=== PATIENT | male | born 1950 | race Caucasian/White ===

== ENCOUNTER 2017-07-01 12:07 | Outpatient (CLI) | payer MEDICARE ==
--- NOTE | 2017-07-01 17:54 | XRAY Report ---
TWO VIEW CHEST: 07/01/2017 CLINICAL INDICATION: Cough. Frontal and lateral views of the chest demonstrate a normal cardiac silhouette. The lungs are hyperi nflated, compatible with COPD. No focal consolidation, effusion, or pneumothorax is present. IMPRESSION: COPD, BUT NO EVIDENCE OF ACUTE CARDIOPULMONARY DISEASE. JOB #: [id number] EXT JOB #:[id number]
== END 2017-07-01 12:08 | disposition home or self-care (01) ==
LOC: DI.S 12:07
PROVIDERS: ATTEND Nurse Practitioner Family
DX: J44.9 Chronic obstructive pulmonary disease, unspecified (principal)
CPT/HCPCS: 71020

== ENCOUNTER 2017-08-11 09:04 | Outpatient (CLI) | payer MEDICARE | END 2017-08-11 09:05 | disposition home or self-care (01) | LOC: RT 09:04 | PROVIDERS: ATTEND Registered Nurse | DX: R05 Cough (principal); R06.2 Wheezing | CPT/HCPCS: 94010 ==

== ENCOUNTER 2017-09-21 08:28 | Outpatient (CLI) | payer MEDICARE ==
--- NOTE | 2017-09-21 09:30 | CT Report ---
CT OF CHEST WITHOUT CONTRAST: 09/21/2017 CLINICAL INDICATION: Cough, weight loss. TECHNIQUE: Axial CT images of the chest were obtained without intravenous contrast. No previous CT is available for comparison. FINDINGS: The heart and great vessels demonstrate minimal atherosclerotic calcification. No hilar or mediastinal lymphadenopathy is present. The lungs demonstrate minimal atelectasis. No pulmonary nodule or mass lesion is seen. No focal infiltrate is present. No effusion or pneumothorax. Limited evaluation of upper abdominal structures demonstrates normal adrenal glands. Osseous structures demonstrate degenerative changes. IMPRESSION: NO EVIDENT ETIOLOGY FOR PATIENT'S COUGH AND WEIGHT LOSS. In accordance with CT protocol optimization, one or more of the following dose reduction techniques were utilized for this exam: automated exposure control, adjustment of mA and/or KV based on patient size, or use of iterative reconstructive technique. TD: 09/21/2017 09:30
== END 2017-09-21 08:29 | disposition home or self-care (01) ==
LOC: DI 08:28
PROVIDERS: ATTEND Registered Nurse
DX: R05 Cough (principal); R63.4 Abnormal weight loss
CPT/HCPCS: 71250

== ENCOUNTER 2019-09-15 08:21 | Outpatient (CLI) | payer MEDICARE ==
--- NOTE | 2019-09-15 15:48 | MRI Report ---
Reason: GOUT Procedure Date: 09/15/2019 Accession Number: [id number] / [id number] Procedure: MRI - Foot RT W/O CPT Code: Final Report FULL RESULT: EXAM: RIGHT MIDFOOT MRI WITHOUT CONTRAST. EXAM DATE: 09/15/2019 09:26 AM. CLINICAL HISTORY: Gout. COMPARISON: None. TECHNIQUE: Multiplanar, multisequence T1-weighted and fluid-sensitive sequences of the midfoot without contrast. Other: None. FINDINGS: Bones and articular surfaces: Moderate cartilage thinning at the 1st MTP joint with patchy subchondral edema and small marginal osteophytes. Possible small tophus at the distal medial margin of the 1st metatarsal with small underlying erosion. Remaining MTP joints are unremarkable. Patchy subchondral edema partially visualized at the 1st interphalangeal joint. No fracture. Musculotendinous structures: Visualized flexor and extensor tendons appear intact. No significant muscle atrophy or fatty replacement. Miscellaneous: Subcutaneous soft tissue edema over the dorsum of the forefoot. Plantar subcutaneous nodule demonstrating intermediate T1 and high T2 signal measuring 1.2 x 1.0 x 1.1 cm. This abuts the skin surface and is located superficial to the distal plantar fascia and flexor digitorum tendons near the level of the mid third intermetatarsal space. No additional discrete subcutaneous nodule identified. IMPRESSION: 1. Well-circumscribed subcutaneous intermediate T1 high T2 signal nodule 1.2 x 1.0 x 1.1 cm. Cystic versus solid. Considerations include epidermoid inclusion cyst, ganglion cyst, metastatic or other neoplasm. Could be further characterized with contrast-enhanced MRI. 2. 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 Possibility of a small tophus and erosion at the distal medial aspect of the 1st metatarsal. RADIA
== END 2019-09-15 08:22 | disposition home or self-care (01) ==
LOC: DI 08:21
PROVIDERS: ATTEND Nurse Practitioner Family
DX: M19.071 Primary osteoarthritis, right ankle and foot (principal); R22.41 Localized swelling, mass and lump, right lower limb; M10.9 Gout, unspecified

== ENCOUNTER 2020-01-12 11:30 | Outpatient (CLI) | payer MEDICARE | END 2020-01-12 11:31 | disposition home or self-care (01) | LOC: LAB 11:30 | PROVIDERS: ATTEND Registered Nurse | DX: I10 Essential (primary) hypertension (principal) | CPT/HCPCS: 36415; 81599; 82088; 84244 ==

== ENCOUNTER 2023-05-15 13:18 | Outpatient (CLI) | payer MEDICARE ==
--- NOTE | 2023-05-15 14:08 | SLEEP CARE CONSULTATION ---
Information from patient questionnaire entered by Venecia Daniels. I have reviewed and concur with the information entered by Venecia Daniels. This document represents the service I personally performed and the decisions made by me, Neisha Ralph ARNP. History of Present Illness Service Date and Time: 05/15/2023 1318 Reason for Visit: New patient Chief Complaint: reports: Observed pauses in breathing, Frequent awakenings at night Date of Onset: 10-12YRS Usual bedtime: 10PM Time it takes to fall asleep: 1-2HRS, will take melatonin at 2 hrs to help go to sleep Snores at night: Yes Observed to quit breathing while asleep: No Number of times waking at night: 2-3 Reasons for waking at night: reports: Bathroom, Other (UNKNOWN). denies: Choking, Gasping for air Toss, Turn, or Twitch while sleeping: Yes Recalls having dreams: No Usually gets out of bed at: 830-9AM Feels refreshed in the morning: No Morning headache: No Sleepy or fatigued during the day: No Ever fallen asleep while driving: Yes (drowsy driving; no accidents) Takes day naps: No Dreams during day naps: No Prior sleep studies: No Additional HPI information: I had the pleasure of seeing JANEL VENCES today regarding the possibility of him having a sleep disorder. His current complaints are observed pauses in breathing and frequent night awakenings. He has a history of snoring for a long time. His says he stops breathing at night. His son was diagnosed with sleep apnea and is on a PAP machine. He states as a child he had a tonsillectomy and adenoids removed for snoring and illness. He does not wake up feeling rested. He will toss and turn for many hours at night. If he has not fallen asleep in 1-2 hours he will get up and take a Melatonin to get to sleep. He will then wake up several times a night and not be able to return to sleep. He has regularly spent 9 hours of time in bed and only gets 6 hours of sleep. - Parasomnia Symptoms Ever been unable to move upon waking from sleep: No Walks in sleep: No Talks in sleep: No Ever acted out dreams in sleep: No Ever felt weak in the knees when startled or emotional: Yes Bothered by creepy, crawly, restless sensations in legs: No Problems with memory or concentration: No Subjective Initial [place] Sleepiness Scale score: 11 (05/15/23) Past Medical History Past Medical History: reports: Hypertension, Arrythmia (minor heart murmur) Social History The patient's occupation is a RETIRED. Patient is and lives in [place]. Have you smoked in the past 12 months: No Alcohol use: No Caffeine use: No Family History Family history of sleep disordered breathing: Yes Family Hx Sleep Apnea: Other: Snoring (SON), Sleep apnea - Treated (SON) Allergies and Home Medications Known drug allergies: Yes (PCN BEE STING) Drug allergies reviewed: Yes Home medication list reviewed: Yes Allergy and home medication list: Allergies Penicillins Allergy (Verified 05/15/23 13:16) BEE STING Allergy (Uncoded 05/15/23 13:16) Home Medications Losartan [Cozaar] See Rx Instructions .ROUTE .COMPLEX 05/15/23 [History] Tamsulosin [Flomax] See Rx Instructions .ROUTE .COMPLEX 05/15/23 [History] Review of Systems Weight loss over past 5 years: 15 Cardiovascular: reports: high blood pressure Respiratory: reports: sputum production Gastrointestinal: denies: heartburn Urinary: reports: incontinence, frequency Neurological: reports: gait or balance problems. denies: headaches Psychiatric: denies: anxiety, depression Ear/Nose/Throat: reports: nasal congestion, tonsillectomy. denies: wisdom teeth removed Endocrine: reports: increased urination, unexplained weakness Musculoskeletal: reports: back pain, muscle pain or cramping Immunologic: reports: sneezing, allergies to food or environment (bee sting) Physical Exam Vital signs obtained and entered by: VENECIA Shaw MA Blood Pressure: 138/80 (LEFT ARM) Cuff size: regular Heart Rate: 92 O2 Saturation: 98 Height: 6 ft 1.5 in Weight: 223 lb 3.2 oz Body Mass Index: 29.0 BMI Classification: Overweight Neck circumference: 17 Mouth and throat: narrow oropharynx Soft palate: long Hard palate: normal Uvula: normal Uvula visualization: 0% Mallampati Class IV Tongue: enlarged in size with teeth prather on lateral edges Tonsils: absent bilaterally Neck: normal w/o lymphadenopathy or thyromegaly Heart: regular rate and rhythm Lungs: clear bilaterally Impression and Plan 1. Suspected Obstructive Sleep Apnea-Hypopnea Syndrome, as suggested by a history of loud and irregular snoring, observed cessation of breath while asleep, frequent awakening during the night and unrefreshed sleep. Narrow oropharynx and obesity are common predisposing factors for obstructive sleep apnea-hypopnea syndrome. I recommend proceeding to polysomnography to confirm the diagnosis and to assess severity. If the patient has significant sleep d isordered breathing, a manual CPAP titration study will also be performed to find the optimal treatment pressure. I informed the patient of what the sleep studies involve and after some discussion, obtained agreement to proceed. The pathophysiology of obstructive sleep apnea-hypopnea syndrome was discussed with the patient and health risks of cardiovascular and cerebrovascular disease if not treated. Risks of drowsy driving discussed in detail and patient advised to avoid long distance driving and to stock puller at the first sign of drowsiness. Patient agreed to plan. * Schedule polysomnography * Avoid long distance driving or driving when feeling sleepy. * Avoid alcohol, sedative and muscle relaxant around bedtime. * Attempt to lose weight. * Review instructions provided by trained office staff on how to prepare for the sleep study. * Return for follow-up after sleep study completed. Counseling Topics: Weight loss health impact Plan: PSG Visit Type: In Office Time Spent with Patient (minutes): 30 Provider Statement: I spent 100% of the Face to Face Visit with the patient with greater than 50% spent counseling the patient and coordination of care.
--- NOTE | 2023-05-15 14:09 | Sleep Patient Instructions ---
Sleep Center Visit Summary - Patient Visit Information Reason for Visit: Initial consult for evaluation of sleep disordered breathing and other sleep issues. - Patient Instructions Instructions Attached: Sleep Clinic Visit, Sleep Study Additional Instructions: You will be completing a sleep study, either an in-lab polysomnography (PSG) or home sleep study (HST). You will follow-up in the sleep care office after the sleep study is completed to hear the results and talk about therapy, if needed. You will be called by our office staff to schedule this appointment, but you may contact us with any questions. - Clinic Information Contact: [facility] [address] [place] [address] [email or web address] T: [phone]
[2023-05-15 15:03] VITALS: BP 138/80; O2SAT 98
== END 2023-05-15 13:19 | disposition home or self-care (01) ==
LOC: SC 13:18
PROVIDERS: ATTEND Nurse Practitioner Family
DX: G47.8 Other sleep disorders (principal); R06.83 Snoring; R06.81 Apnea, not elsewhere classified; I10 Essential (primary) hypertension; E66.3 Overweight; Z68.29 Body mass index [BMI] 29.0-29.9, adult
CPT/HCPCS: 99203; G0463; 99212

== ENCOUNTER 2023-06-04 19:16 | Outpatient (CLI) | payer MEDICARE | END 2023-06-04 19:17 | disposition home or self-care (01) | LOC: SC 19:16 | PROVIDERS: ATTEND Nurse Practitioner Family | DX: G47.31 Primary central sleep apnea (principal); G47.33 Obstructive sleep apnea (adult) (pediatric); G47.61 Periodic limb movement disorder; E66.3 Overweight; Z68.29 Body mass index [BMI] 29.0-29.9, adult | CPT/HCPCS: 95810 ==

== ENCOUNTER 2023-06-24 11:13 | Outpatient (CLI) | payer MEDICARE ==
--- NOTE | 2023-06-24 11:58 | Sleep Patient Instructions ---
Sleep Center Visit Summary - Patient Visit Information Reason for Visit: Sleep study followup - Patient Instructions Instructions Attached: CPAP, CPAP Dc Additional Instructions: You are being started on CPAP therapy with pressure setting at 4-15 cmH2O. You will need to call the sleep care office to set up your follow up once you have your APAP machine and we will schedule a visit to check compliance and response to therapy at that time. You may call the office with any concerns about pressure feeling too low or too much for adjustment, if needed. You should contact DME supplier for any questions or concerns about mask or equipment. Please call office to schedule a follow up appointment in the sleep care office one month after obtaining new device. - Clinic Information Contact: [facility] [address] [place] [address] [email or web address] T: [phone]
--- NOTE | 2023-06-24 12:01 | SLEEP CARE CONSULTATION ---
Information from patient questionnaire entered by Venecia Daniels. I have reviewed and concur with the information entered by Venecia Daniels. This document represents the service I personally performed and the decisions made by me, Neisha Ralph ARNP. History of Present Illness Service Date and Time: 06/24/2023 1113 Initial [place] Sleepiness Scale score: 11 (05/15/23) Current [place] Sleepiness Scale score: 15 (06/24/23) Additional HPI information: JANEL VENCES returns for follow up and results of the recently performed polysomnography. The sleep study showed severe obstructive sleep apnea with an average AHI of 48.5 and nadiya oxygen saturation of 79%. He also had moderate PLMs that did not contribute to sleep fragmentation. I explained the pathophysiology behind obstructive sleep apnea. We then spent quite a bit of time discussing different treatment options. For mild obstructive sleep apnea, surgery and oral appliance are alternatives to nasal CPAP therapy but in moderate or severe cases, nasal CPAP is the most effective and reliable treatment. I reviewed the impact of weight changes on sleep apnea and strongly recommended losing weight. After some discussion, the patient opted to go with the nasal CPAP therapy. Nasal autoCPAP set at 4-15 cmH20 will be ordered with rationale explained. A manual titration study will be ordered if unable to find optimal pressure with office adjustments. I explained how CPAP machine works and what to expect when using the machine. Using CPAP every night in order to get used to it was emphasized. Patient advised to put CPAP mask on before getting into bed so as not to fall asleep without CPAP. To assist acclimation to CPAP use, it could also be used for a short time during day while reading or watching TV. The patient was instructed to call the CPAP supplier to discuss any mechanical problem that may occur. If the mask given is uncomfortable or is difficult to keep on through the night even with adjustment, contact the CPAP supplier as many will replace with another mask style if notified before 30 days. If snoring or perceives is not getting enough air or too much air from the machine, notify this office. Patient does not drink alcohol. Patient was cautioned about risks of drowsy driving until sleepiness symptoms resolve. Patient denies drowsy driving. Sleep Study - Results Type of Sleep Study: Polysomnography (COMPLETED 06/04/23) Prior sleep studies: No Polysomnography/Home Sleep Study results: IMPRESSION: The quality of the study is good. The patient had poor sleep efficiency due to two prolonged awakenings during the night. The sleep architecture was abnormal for lack of slow wave sleep (N3).. Respiratory monitoring showed severe obstructive sleep apnea-hypopnea (AHI = 48.5) associated with frequent, oxyhemoglobin desaturation and moderate hypoxia (nadiya oxygen saturation of 79%). Baseline oxygen saturation was normal. The respiratory events occurred predominantly during supine sleep(supine AHI = 64.4; non-supine = 19.62). Snore was light to moderate in intensity. There was moderate periodic leg movement of sleep not associated with sleep fragmentation. Cardiac rhythm was normal sinus rhythm without significant arrhythmia. No abnormal behavior (parasomnia) observed during the night. Allergies and Home Medications Known drug allergies: Yes (as listed) Drug allergies reviewed: Yes Home medication list reviewed: Yes (no changes) Allergy and home medication list: Allergies Penicillins Allergy (Verified 06/23/23 14:18) BEE STING Allergy (Uncoded 06/23/23 14:18) Review of Systems Review of systems same as previous: Yes (NO CHANGE) Physical Exam Vital signs obtained and entered by: VENECIA Shaw MA Blood Pressure: 126/74 (LEFT ARM) Cuff size: regular Heart Rate: 80 O2 Saturation: 98 Height: 6 ft 1.5 in Weight: 224 lb 9.6 oz Body Mass Index: 29.2 BMI Classification: Overweight Impression and Plan 1. Obstructive Sleep Apnea-Hypopnea Syndrome, severe, with lowest oxygen saturation of 79%. Obviously this is the cause of the patients symptoms of unrefreshed sleep, and excessive daytime sleepiness. Positive pressure therapy could benefit hypertension. As mentioned above, the patient will be started on nasal autoCPAP therapy with pressure set at 4-15 cmH2O. A manual titration study will be completed if unable to find optimal treatment pressure with office adjustments. Compliance guidelines also reviewed. A copy of compliance guidelines will be given for reference at check out. Because the apnea is more severe supine, I instructed to avoid sleeping supine using pillow positioning until able to start CPAP use. 2. Hypoxemia, moderate, with a nadiya oxygen saturation of 79% and 77.2 minutes spent under 90%. The baseline oxygen saturation was normal with an average oxygen saturation of 91%. 3. Periodic limb movement, moderate, that did not fragment patients sleep. Periodic limb movement of sleep (PLMS) is characterized by episodes of repetitive limb movements that occur during sleep and usually involve the lower limbs. The etiology is unknown. Sleep hygiene methods can also improve sleep as well as lifestyle changes such as regular exercise. Patient was advised that no treatment is needed at this time. If symptoms increase, then further evaluation is indicated. * Nasal auto CPAP therapy, pressure at 4-15 cm H2O. * Attempt to lose weight. * Avoid alcohol consumption near bedtime. * Avoid supine sleep until using CPAP. * The patient is again cautioned about driving until sleepiness completely resolves. * Return one month after CPAP obtained. I will assess response to therapy and compliance at that time. Counseling Topics: Weight loss health impact Prescriptions: Auto CPAP Plan: F/U for compliance Visit Type: In Office Time Spent with Patient (minutes): 20 Provider Statement: I spent 100% of the Face to Face Visit with the patient with greater than 50% spent counseling the patient and coordination of care.
[2023-06-24 12:09] VITALS: BP 126/74; O2SAT 98
== END 2023-06-24 11:14 | disposition home or self-care (01) ==
LOC: SC 11:13
PROVIDERS: ATTEND Nurse Practitioner Family
DX: G47.33 Obstructive sleep apnea (adult) (pediatric) (principal); R09.02 Hypoxemia; G47.61 Periodic limb movement disorder; E66.3 Overweight; Z68.29 Body mass index [BMI] 29.0-29.9, adult
CPT/HCPCS: 99213; G0463; 99212

== ENCOUNTER 2023-12-16 14:37 | Outpatient (CLI) | payer MEDICARE ==
--- NOTE | 2023-12-16 15:01 | Sleep Patient Instructions ---
Sleep Center Visit Summary - Patient Visit Information Reason for Visit: 4-month follow-up - Patient Instructions Additional Instructions: You were here for follow up of CPAP therapy. You will be continued on CPAP therapy with pressure at 10-14 cmH2O. You will be completing a titration sleep study in our sleep lab where you will be sleeping with the CPAP machine on and we will be adjusting your pressures to find your optimal pressure settings. Once we have your results back, we will call you and schedule a follow up to go over the results, you may contact us with any questions or issues as needed. - Clinic Information Contact: [facility] [address] [place] [address] [email or web address] T: [phone]
--- NOTE | 2023-12-16 15:04 | SLEEP CARE CONSULTATION ---
Information from patient questionnaire entered by Venecia Daniels. I have reviewed and concur with the information entered by Venecia Daniels. This document represents the service I personally performed and the decisions made by me, Neisha Ralph ARNP. History of Present Illness Service Date and Time: 12/16/2023 1437 Previous diagnosis: Severe, Obstructive Sleep Apnea-Hypopnea Syndrome AHI: 48.5 (06/2023) Reason for follow up: other (4 MONTH F/U) Equipment type: CPAP (ResMed Airsense 10, s/u 07/2023, NEED MACHINE) Equipment obtained from: [employer] (getting supplies online because he is not eligible until January for further supplies) Mask style: Full face Mask brand: Resmed (AirFit F20, large cushion) Backup mask available: Yes Last cushion change: October Prior sleep studies: No Type of Sleep Study: Polysomnography (COMPLETED 06/04/23) HPI additional information: JANEL VENCES was diagnosed to have severe, AHI 48.5, obstructive sleep apnea-hypopnea syndrome and returned today for CPAP therapy four month follow- up. Sleep Study - Results Type of Sleep Study: Polysomnography (COMPLETED 06/04/23) Prior sleep studies: No CPAP Compliance Data - Data Reviewed with Patient Average duration of nightly device use: 6 hours 30 minutes Compliance rate %: 77 (119/120 days used) Current pressure setting (cmH2O): 10-14 Average residual AHI: 6.5 Central apnea: 3.6 Obstructive apnea: 2 Hypopnea: 0.5 Average large leak: 3.6 L/min Subjective Patient concerns: reports: mask leak noise (mask flutters and wakes him up), dry mouth, nose, throat (dry mouth occasionally). denies: aerophagia, mask discomfort, air blowing in eyes, condensation in mask/hose, nasal congestion, epistaxis Observed to snore while using device: No Current pressure setting perceived as: comfortable On therapy, patient: reports: more rested overall. denies: drowsiness while driving Initial [place] Sleepiness Scale score: 11 (05/15/23) Current [place] Sleepiness Scale score: 15 (12/16/23) Allergies and Home Medications Known drug allergies: Yes (as listed) Drug allergies reviewed: Yes Home medication list reviewed: Yes (no changes) Allergy and home medication list: Allergies Penicillins Allergy (Verified 12/14/23 10:22) BEE STING Allergy (Uncoded 12/14/23 10:22) Review of Systems Review of systems same as previous: Yes (NO CHANGE) Physical Exam Vital signs obtained and entered by: VENECIA Shaw MA Blood Pressure: 131/80 (LEFT ARM) Cuff size: long Heart Rate: 115 O2 Saturation: 96 Height: 6 ft 1.5 in Weight: 233 lb 3.2 oz Body Mass Index: 30.3 BMI Classification: Obese Impression and Plan 1. Obstructive Sleep Apnea-Hypopnea Syndrome, severe, with good treatment compliance and fair apnea control with elevated residual AHI. On CPAP therapy, the patient is more rested overall but does not have more energy during the day. Patient's pressure setting is still not optimal to control sleep apnea. I advised patient that a titration study will be next step to determine a more optimal pressure setting. They voiced understanding and agreement. Patient's apnea severity and rationale for treatment to reduce apnea, improve sleep quality and reduce cardiovascular and cerebrovascular events was reviewed. I also reviewed the benefit of consistent device use of CPAP for hypertension. 2. Obesity, unspecified. Currently patients BMI is 30.3. Obesity increases the risk of apnea, CPAP pressure requirements and overall health risks especially cardiovascular and diabetes. Thus patient is advised to lose weight. * Continue auto CPAP pressure at 10-14 cmH2O * Titration study * Notify me if snoring with mask or feeling that the pressure is too much or too little * Attempt to lose weight * Call this office if any problems using CPAP * Return for follow up after titration study, or sooner if concerns arise Counseling Topics: Spare mask, Weight loss health impact Plan: Titration study and followup Visit Type: In Office Time Spent with Patient (minutes): 20 Provider Statement: I spent 100% of the Face to Face Visit with the patient with greater than 50% spent counseling the patient and coordination of care.
[2023-12-16 15:24] VITALS: BP 131/80; O2SAT 96
== END 2023-12-16 14:38 | disposition home or self-care (01) ==
LOC: SC 14:37
PROVIDERS: ATTEND Nurse Practitioner Family
DX: G47.33 Obstructive sleep apnea (adult) (pediatric) (principal); E66.9 Obesity, unspecified; Z68.30 Body mass index [BMI] 30.0-30.9, adult
CPT/HCPCS: 99213; G0463; 99212

== ENCOUNTER 2024-01-24 20:41 | Outpatient (CLI) | payer MEDICARE | END 2024-01-24 20:42 | disposition home or self-care (01) | LOC: SC 20:41 | PROVIDERS: ATTEND Nurse Practitioner Family | DX: G47.33 Obstructive sleep apnea (adult) (pediatric) (principal); G47.31 Primary central sleep apnea; G47.61 Periodic limb movement disorder | CPT/HCPCS: 95811 ==

== ENCOUNTER 2024-02-02 09:26 | Outpatient (CLI) | payer MEDICARE ==
--- NOTE | 2024-02-02 09:46 | Sleep Patient Instructions ---
Sleep Center Visit Summary - Patient Visit Information Reason for Visit: Titration study follow-up - Patient Instructions Additional Instructions: You were here for follow up of titration study where it showed your optimal pressure to be at 13 cmH2O. You will be continued on CPAP therapy with pressure at 13 cmH2O. Please let us know if the pressure change is uncomfortable and we can make further adjustments of the pressure. You should follow up with sleep care in 3 months. You may contact us sooner for any questions or concerns. - Clinic Information Contact: [facility] [address] [place] [id number] [email or web address] T: [phone]
--- NOTE | 2024-02-02 09:49 | SLEEP CARE CONSULTATION ---
Information from patient questionnaire entered by Venecia Daniels. I have reviewed and concur with the information entered by Venecia Daniels. This document represents the service I personally performed and the decisions made by , Neisha Ralph ARNP. History of Present Illness Service Date and Time: 02/02/2024925 Initial [place] Sleepiness Scale score: 11 (05/15/23) Current [place] Sleepiness Scale score: 13 (02/02/24) Additional HPI information: JANEL VENCES returns for follow up of a manual CPAP titration study performed on 01/24/24. Previous study done on 06/04/2023 showed severe obstructive sleep apnea with AHI 48.5. The patient was informed of the following polysomnography findings: CPAP was initiated at 6 cmH2O and titrated up to 13 cmH2O. CPAP at 13 cmH2O appeared to be optimal (AHI of 1.3 per hour on the pressure). There was supine REM sleep on the pressure. Oxygen saturation was minimally low. Lower CPAP settings appeared adequate as well. The patient tolerated positive airway pressure therapy fairly well. There was severe periodic leg movement of sleep not associated with sleep fragmentation. Patient to continue on CPAP therapy. Sleep Study - Results Type of Sleep Study: Polysomnography (COMPLETED 06/04/23 TITRATION STUDY COMPLETED 01/24/24) Prior sleep studies: No Polysomnography/Home Sleep Study results: IMPRESSION: The quality of the study is good. CPAP was initiated at 6 cmH2O and titrated up to 13 cmH2O. CPAP at 13 cmH2O appeared to be optimal (AHI of 1.3 per hour on the pressure). There was supine REM sleep on the pressure. Oxygen saturation was minimally low. Lower CPAP settings appeared adequate as well. The patient tolerated positive airway pressure therapy fairly well. The patients sleep efficiency was reduced due to a few prolonged awakenings during the night. The sleep architecture was relatively normal considering the first-night effect. There was severe periodic leg movement of sleep not associated with sleep fragmentation. Cardiac rhythm was normal sinus rhythm without significant arrhythmia. No abnormal behavior (parasomnia) observed during the night. CONCLUSIONS and RECOMMENDATIONS: 1. Obstructive and central sleep apnea-hypopnea (ICD-10 G47.33 and G47.31), severe (AHI was 48.5), adequately controlled with CPAP at 13 cmH2O. CPAP therapy is, therefore, recommended at the pressure setting. AutoCPAP set between 8 and 13 cmH20 is also appropriate. Interface used was a ResMed [place] F30 full face mask size medium. With a BMI of 29.1 Kg/M2 , weight loss is also recommended. 2. Periodic leg movement of sleep (ICD G47.61), severe, treatment may be indicated. Clinical correlation advised. Allergies and Home Medications Known drug allergies: Yes (as listed) Drug allergies reviewed: Yes Home medication list reviewed: Yes (no changes) Allergy and home medication list: Allergies Penicillins Allergy (Verified 12/16/23 14:35) BEE STING Allergy (Uncoded 12/16/23 14:35) Review of Systems Review of systems same as previous: Yes (NO CHANGE) Physical Exam Vital signs obtained and entered by: VENECIA Shaw MA Blood Pressure: 138/70 (LEFT ARM) Cuff size: regular Heart Rate: 71 O2 Saturation: 95 Height: 6 ft 1.5 in Weight: 234 lb 12.8 oz Body Mass Index: 30.5 BMI Classification: Obese Impression and Plan 1. Obstructive Sleep Apnea-Hypopnea Syndrome, severe. He returns to office after titration study to review results and have pressure adjusted. His optimal pressure noted during titration study was at 13 cmH2O. The patients pressure will be changed to CPAP 13 cmH20 to reflect optimal pressure during study. Patient advised to contact me if pressure change is uncomfortable so that it can be adjusted. Goals for apnea control discussed. Patient was fitted to AirFit F30, he tolerated it well but thinks that the F40, that the tech told him about on the night of the titration study, would be a better fit for him. He would like to order this when he orders his next mask. I will put in for mask refitting for this mask. Patient's apnea severity and rationale for treatment to reduce apnea, improve sleep quality and reduce cardiovascular and cerebrovascular events was reviewed. I also reviewed the benefit of consistent device use of CPAP for hypertension. 2. Periodic limb movement, severe, that did not fragment patients sleep. Periodic limb movement of sleep (PLMS) is characterized by episodes of repetitive limb movements that occur during sleep and usually involve the lower limbs. The etiology is unknown. Patient was advised that no treatment is needed at this time. If symptoms increase, then further evaluation is indicated. 3. Obesity, unspecified. Currently patients BMI is 30.5. Obesity increases the risk of apnea, CPAP pressure requirements and overall health risks especially cardiovascular and diabetes. Thus patient is advised to lose weight. * Change to CPAP pressure to 13 cmH2O, noted to be optimal during titration study * Mask refitting to ResMed AirFit F40 full face mask * Follow up with PCP for severe PLMs * Notify me if snoring with mask or feeling that the pressure is too much or too little * Attempt to lose weight * Call this office if any problems using CPAP * Return for follow up in 1-2 months, or sooner if concerns arise Adjust device pressure to (cmH2O): 13 Counseling Topics: Weight loss health impact Follow up with Sleep Care in: 3 months Visit Type: In Office Time Spent with Patient (minutes): 20 Provider Statement: I spent 100% of the Face to Face Visit with the patient with greater than 50% spent counseling the patient and coordination of care.
[2024-02-02 09:51] VITALS: BP 138/70; O2SAT 95
== END 2024-02-02 09:27 | disposition home or self-care (01) ==
LOC: SC 09:26
PROVIDERS: ATTEND Nurse Practitioner Family
DX: G47.33 Obstructive sleep apnea (adult) (pediatric) (principal); G47.61 Periodic limb movement disorder; E66.9 Obesity, unspecified; Z68.30 Body mass index [BMI] 30.0-30.9, adult
CPT/HCPCS: 99213; G0463; 99212

== ENCOUNTER 2024-03-30 15:08 | Outpatient (CLI) | payer MEDICARE ==
--- NOTE | 2024-03-30 17:04 | XRAY Report ---
PROCEDURE: Chest 2V INDICATIONS: COUGH TECHNIQUE: 2 views of the chest were acquired. COMPARISON: 09/21/2017 FINDINGS: Surgical changes and devices: None. Lungs and pleura: No pleural effusions or pneumothorax. Lungs are clear. Mediastinum: Mediastinal contours appear normal. Heart size is normal. Bones and chest wall: No suspicious bony lesions. Overlying soft tissues appear unremarkable. IMPRESSION: No acute cardiopulmonary process. Reviewed by: Tonny Farfan MD on 03/30/2024 5:03 PM PDT Approved by: Tonny Farfan MD on 03/30/2024 5:03 PM PDT Station ID: [id number]
== END 2024-03-30 15:09 | disposition home or self-care (01) ==
LOC: DI.S 15:08
PROVIDERS: ATTEND Registered Nurse
DX: R05.9 Cough, unspecified (principal)